=== PATIENT | male | born 1955 | race Caucasian/White ===

== ENCOUNTER 2018-11-17 11:14 | Inpatient (IN) ==
[2018-11-17] MEDS ORDERED: MAALOX PLUS LIQUID PO PRN (11:47)
[2018-11-17] MEDS ORDERED: DULCOLAX PR PRN (11:47)
[2018-11-17] MEDS ORDERED: ZOFRAN IV PRN (11:47)
[2018-11-17] MEDS ORDERED: DESYREL PO PRN (11:47)
[2018-11-17] MEDS ORDERED: ZOFRAN ODT PO PRN (11:47)
[2018-11-17] MEDS ORDERED: PHENOBARBITAL IV PRN (11:47)
[2018-11-17] MEDS ORDERED: LIBRIUM PO PRN (11:47)
[2018-11-17] MEDS ORDERED: D5W 1,000 ML IV PRN (11:47)
[2018-11-17] MEDS ORDERED: TUBERSOL ID ONE (11:47)
[2018-11-17] MEDS ORDERED: ATARAX PO PRN (11:47)
[2018-11-17] MEDS ORDERED: SENOKOT PO PRN (11:47)
[2018-11-17] MEDS ORDERED: NICODERM PATCH TD PRN (11:47)
[2018-11-17 12:23] LABS: URINE SOURCE VOIDED
[2018-11-17] MEDS: LIBRIUM PO SCH ×2 (12:24→18:03)
[2018-11-17 12:29] LABS: BILIRUBIN URINE NEGATIVE (NEGATIVE); BLOOD URINE NEGATIVE (NEGATIVE); KETONE URINE NEGATIVE (NEGATIVE); LEUKOCYTES URINE TRACE (NEGATIVE); NITRITE URINE NEGATIVE (NEGATIVE); PH URINE 6.5; PROTEIN URINE 1+(30 mg/dL) mg/dL (NEGATIVE); SP GRAVITY URINE 1.015; UROBILINOGEN URINE NORMAL
[2018-11-17 12:30] LABS: CLARITY CLEAR (CLEAR); COLOR YELLOW; URINE BACTERIA NEGATIVE /HFP; URINE CAST NONE SEEN /LPF; URINE CRYSTAL NONE SEEN /HPF; URINE EPITHELIAL CELLS <10 /HPF (<10); URINE RBC <10 /HPF (<10); URINE WBC <10 /HPF (<10); URINE YEAST NONE SEEN /HPF
[2018-11-17 12:35] LABS: UR AMPHETAMINES QUAL NONE DETECTED (NONE DETECT); UR BARBITUATES QUAL NONE DETECTED (NONE DETECT); UR BENZODIAZEPIN QUAL NONE DETECTED (NONE DETECT); UR CANNABINOIDS QUAL NONE DETECTED (NONE DETECT); UR COCAINE QUAL NONE DETECTED (NONE DETECT); UR METHADONE QUAL NONE DETECTED (NONE DETECT); UR METHAMPHETAMINE QUAL NONE DETECTED (NONE DETECT); UR OPIATES QUAL PRESUMPTIVE POSITIVE (NONE DETECT); UR OXYCODONE QUAL PRESUMPTIVE POSITIVE (NONE DETECT); UR PCP QUAL NONE DETECTED (NONE DETECT); UR PROPOXYPHENE QUAL NONE DETECTED (NONE DETECT); UR TCA QUAL NONE DETECTED (NONE DETECT)
[2018-11-17 12:47] LABS: HEMATOCRIT 41.9 % (42.0-52.0); HEMOGLOBIN 14.8 g/dL (14.0-18.0); MCH 30.4 PG (27-31); MCHC 35.3 g/dL (33-37); MPV 10.3 FL (7.4-10.4); RBC 4.87 XMIL (4.7-6.1); RDW 12.2 % (11.5-14.5); WBC 9.73 X1000 (4.8-10.8)
[2018-11-17 13:00] LABS: AMYLASE 50 U/L (20-200); LIPASE 30 U/L (13-60)
[2018-11-17 13:01] LABS: INR 1.04; PROTIME 14.1 Seconds (11.0-16.0)
[2018-11-17 13:04] LABS: AGAP 11; ALBUMIN 4.7 g/dL (3.5-5.0); ALKALINE PHOSPHATASE 117 U/L (32-122); BUN 6 mg/dL (8-22); CALCIUM 10.1 mg/dL (8.8-10.2); CHLORIDE 99 mmol/L (98-107); COSMO 277; CREATININE 0.9 mg/dL (0.7-1.2); ESTIMATED GFR > 60; GLUCOSE 140 mg/dL (70-104); GOT 43 U/L (10-34); GPT 55 U/L (10-44); POTASSIUM 3.8 mmol/L (3.5-5.1); SODIUM 139 mmol/L (136-145); TCO2 29 mmol/L (25-35); TOTAL PROTEIN 7.8 g/dL (6.3-8.3)
[2018-11-17] MEDS: BENTYL PO PRN (15:36)
[2018-11-17] MEDS: ROBAXIN PO PRN (15:36)
[2018-11-17] MEDS: IMODIUM PO PRN ×2 (16:43→18:02)
[2018-11-18] MEDS: ROBAXIN PO PRN ×3 (00:14→16:41)
[2018-11-18] MEDS: LIBRIUM PO SCH ×4 (00:14→20:02)
[2018-11-18] MEDS: TORADOL IV PRN (05:31)
[2018-11-18] MEDS: PROTONIX PO SCH (06:20)
[2018-11-18] MEDS: THERA M PLUS PO SCH (09:58)
[2018-11-18] MEDS: FOLIC ACID PO SCH (09:58)
[2018-11-18] MEDS: VITAMIN B-1 PO SCH (09:58)
[2018-11-18] MEDS: IMODIUM PO PRN (13:01)
--- NOTE | 2018-11-18 19:39 | PROGRESS NOTE ---
DATE: 11/18/2018 SUBJECTIVE: Patient notes that he is feeling okay, still having muscle aches, but overall is improved. PHYSICAL EXAMINATION: Vital Signs: Reviewed. General: He is awake, alert. He is in no distress. HEENT: Normocephalic. Neck: Supple. Cardiovascular: Regular rate. Chest: Clear. Abdomen: Soft. ASSESSMENT: 1. Nausea, vomiting. 2. Abdominal pain. 3. Myalgias. 4. Paresthesias. 5. Paroxysmal sweating. 6. Opiate abuse withdrawal and stabilization. PLAN: We will continue patient in the hospital. Continue to follow. Further orders as needed. Continue to wean Librium. Continue counseling. cc: Salinas Prince MD
[2018-11-18] MEDS: SINEMET 25/100 PO PRN (20:02)
[2018-11-18] MEDS: SEROQUEL PO PRN (20:02)
--- NOTE | 2018-11-18 21:15 | HISTORY AND PHYSICAL ---
CHIEF COMPLAINT: Nausea and vomiting. HISTORY OF PRESENT ILLNESS: The patient is a 62-year-old male who presented to [facility] [place] [facility] secondary to nausea, vomiting, abdominal pain, myalgias, paresthesias, and paroxysmal sweating. The patient notes that he has been using and abusing opiates. He wants to get his life back. Notes that he is tired of drugs controlling his life. SOCIAL HISTORY: Patient is . He is unemployed. Lives at home in [place]. PAST MEDICAL HISTORY: 1. Hypertension. 2. Chronic back pain, with 3 surgeries, two of them in 2003, the last one in 2010. MEDICATIONS: Lisinopril 20. ALLERGIES: No known drug allergies. REVIEW OF SYSTEMS: CINA score is elevated at 20 secondary to abdominal pain, cramping, nausea, vomiting, diarrhea, muscle aches, frequent restlessness, anxious, sniffing, watery eyes, runny nose, frequent changes in temperature, skin crawling. Denies any headaches, blurred vision, change in vision. Denies any focalized numbness, tingling, weakness in his extremities. Denies dysuria, frequency, urgency, constipation, melena, hematochezia. Denies any weight loss or weight gain. Denies chest pain, palpitations, shortness of breath, headaches, blurred vision, or focalized weakness. FAMILY HISTORY: Noncontributory. SUBSTANCE ABUSE HISTORY: The patient was in [facility] for 7 days in 2008, but only stayed sober for 1 month. Started alcohol at 15 and marijuana at 23; has not used either in years. Started opiates at 46. Currently, is taking greater than 10 [place] 10 daily. Started smoking at 17; currently smokes 3 packs a day. PHYSICAL EXAMINATION: VITAL SIGNS: Reviewed, stable. GENERAL: Patient is awake, alert. He is in no distress, although he is fidgety, anxious, frequently moving about, unable to sit still. HEENT: Normocephalic. NECK: Supple. CARDIOVASCULAR: Regular rate. CHEST: Clear. ABDOMEN: Soft. EXTREMITIES: Moves all extremities. NEUROLOGIC: No focal neurological changes. SKIN: Warm, dry. No rashes. ASSESSMENT: 1. Nausea vomiting. 2. Abdominal pain. 3. Myalgias. 4. Paresthesias. 5. Paroxysmal sweating. 6. Opiate abuse withdrawal and stabilization. 7. Hypertension. 8. Chronic tobacco abuse. PLAN: We will admit patient to the hospital. Continue to follow. Further orders as needed. Discussed with patient the importance of stopping smoking, the importance of stopping use and abuse. cc: Salinas Prince MD
[2018-11-19] MEDS: TORADOL IV PRN ×3 (02:04→19:17)
[2018-11-19] MEDS: LIBRIUM PO SCH ×3 (04:12→21:04)
[2018-11-19] MEDS: PROTONIX PO SCH (06:34)
[2018-11-19] MEDS: THERA M PLUS PO SCH (08:09)
[2018-11-19] MEDS: VITAMIN B-1 PO SCH (08:09)
[2018-11-19] MEDS: ROBAXIN PO PRN ×2 (08:09→15:13)
[2018-11-19] MEDS: FOLIC ACID PO SCH (08:09)
[2018-11-19] MEDS: SINEMET 25/100 PO PRN (21:18)
[2018-11-19] MEDS: SEROQUEL PO PRN (22:18)
[2018-11-19] MEDS: IMODIUM PO PRN (23:03)
[2018-11-20] MEDS: LIBRIUM PO SCH ×3 (03:44→19:40)
[2018-11-20] MEDS: TORADOL IV PRN ×3 (06:29→22:03)
[2018-11-20] MEDS: PROTONIX PO SCH (06:29)
[2018-11-20] MEDS ORDERED: CATAPRES PO ONE (08:43)
--- NOTE | 2018-11-20 09:03 | PROGRESS NOTE ---
DATE: 11/19/2018 SUBJECTIVE: Patient notes that he still feels bad, but actually better than he anticipated. Still having lots of muscle aches. Denies any tremors. Denies fevers or chills. OBJECTIVE: Vital Signs: On physical examination, vital signs reviewed. General: He is awake, alert. He is in no distress. HEENT: Normocephalic. Neck: Supple. Cardiovascular: Regular rate. Chest: Clear. Abdomen: Soft. Extremities: Moves all extremities. Neurologic: No change. ASSESSMENT: 1. Nausea and vomiting. 2. Abdominal pain. 3. Myalgias. 4. Paresthesias. 5. Paroxysmal sweating. 6. Opiate abuse withdrawal and stabilization. PLAN: Continue Librium taper and counseling. Further orders as needed. cc: Salinas Prince MD
[2018-11-20] MEDS: FOLIC ACID PO SCH (09:36)
[2018-11-20] MEDS: SINEMET 25/100 PO PRN (09:36)
[2018-11-20] MEDS: ROBAXIN PO PRN ×2 (09:36→19:40)
[2018-11-20] MEDS: THERA M PLUS PO SCH (09:37)
[2018-11-20] MEDS: VITAMIN B-1 PO SCH (09:37)
[2018-11-20] MEDS: TYLENOL PO PRN (09:37)
--- NOTE | 2018-11-20 10:30 | PROGRESS NOTE ---
DATE: 11/20/2018 SUBJECTIVE: The patient notes overall he is feeling better although he is still having pretty significant restless leg issues at times. Denies any fevers, chills, cough, congestion. Denies any dysuria, frequency, or urgency. PHYSICAL EXAMINATION: Vital Signs: Reviewed. He is awake, alert. He is in no distress. HEENT: Normocephalic. Neck: Supple. Cardiovascular: Regular rate. No murmurs. Chest clear, nonlabored. Abdomen: Soft, nondistended. Extremities: Moves all extremities. Neurologic: No changes. ASSESSMENT: 1. Restless legs syndrome. 2. Nausea and vomiting. 3. Abdominal pain. 4. Myalgias. 5. Paresthesias. 6. Opiate abuse, withdrawal and stabilization. PLAN: Continue patient in the hospital. Continue Librium taper. Further orders as needed. Continue counseling. cc: Salinas Prince MD
[2018-11-20] MEDS: IMODIUM PO PRN (13:50)
[2018-11-20] MEDS: SEROQUEL PO PRN (22:03)
[2018-11-21] MEDS: ROBAXIN PO PRN ×2 (03:38→12:13)
[2018-11-21] MEDS: LIBRIUM PO SCH ×3 (03:38→21:29)
[2018-11-21] MEDS: PROTONIX PO SCH (06:25)
[2018-11-21] MEDS: TYLENOL PO PRN (08:10)
[2018-11-21] MEDS: SINEMET 25/100 PO PRN (08:10)
[2018-11-21] MEDS: THERA M PLUS PO SCH (08:10)
[2018-11-21] MEDS: FOLIC ACID PO SCH (08:10)
[2018-11-21] MEDS: VITAMIN B-1 PO SCH (08:10)
[2018-11-21] MEDS: IMODIUM PO PRN ×2 (12:12→16:05)
[2018-11-21] MEDS: TORADOL IV PRN ×2 (12:13→21:42)
[2018-11-21] MEDS ORDERED: REVIA PO ONE (13:00)
[2018-11-21] MEDS ORDERED: CATAPRES PO ONE (13:22)
[2018-11-21] MEDS: REQUIP PO SCH ×2 (14:01→21:30)
--- NOTE | 2018-11-21 14:13 | PROGRESS NOTE ---
DATE: 11/21/2018 SUBJECTIVE: Patient is starting to feel better. Still having significant issues with restless leg. Other than that, notes that his symptoms have improved. PHYSICAL EXAMINATION: Vital Signs: Reviewed. General: He is awake and alert. He is in no distress. HEENT: Normocephalic. Neck: Supple. Cardiovascular: Regular rate. Chest: Clear. Abdomen: Soft. Extremities: Moves all extremities. ASSESSMENT: 1. Restless leg syndrome. Change to Requip to see if this will help. 2. Opiate abuse withdrawal and stabilization. We will add 1 dose of clonidine as well. PLAN: We will add Requip and 1 dose of clonidine. We will start naltrexone to see how he tolerates. If he tolerates this, he will be given a dose of Vivitrol in the a.m. and discharged home hopefully. cc: Salinas Prince MD
[2018-11-21] MEDS: BENTYL PO PRN (16:05)
[2018-11-21] MEDS ORDERED: LOMOTIL PO PRN (21:05)
[2018-11-21] MEDS: SEROQUEL PO PRN (21:30)
[2018-11-22] MEDS: ROBAXIN PO PRN ×2 (00:31→18:28)
[2018-11-22] MEDS: LIBRIUM PO SCH ×3 (05:26→21:04)
[2018-11-22] MEDS: REQUIP PO SCH ×3 (05:26→21:04)
[2018-11-22] MEDS: PROTONIX PO SCH ×2 (05:27→07:38)
[2018-11-22] MEDS: TORADOL IV PRN ×2 (05:27→21:04)
[2018-11-22] MEDS: FOLIC ACID PO SCH (10:33)
[2018-11-22] MEDS: VITAMIN B-1 PO SCH (10:33)
[2018-11-22] MEDS: THERA M PLUS PO SCH (10:33)
--- NOTE | 2018-11-22 19:42 | PROGRESS NOTE ---
DATE: 11/22/2018 SUBJECTIVE: Patient notes feeling a lot better although still very sleepy and tired, denies any fevers or chills. PHYSICAL: Vital Signs: Reviewed. He is awake, alert, he is in no distress. HEENT: Normocephalic. Neck: Supple. CV: Regular rate. Chest: Clear. Abdomen: Soft. ASSESSMENT: 1. Diarrhea. Diarrhea worsened after given Vivitrol last night. We are not going to give him a dose today, will continue to follow, will attempt to wean his Librium as that most likely keeping him drowsy. 2. Drowsiness. 3. Opiate abuse withdrawal and stabilization. PLAN: Overall patient has improved, we will continue to follow, hopefully can be discharged home over the next day or 2. cc: Salinas Prince MD
[2018-11-22] MEDS: SEROQUEL PO PRN (21:04)
[2018-11-23] MEDS: TORADOL IV PRN (03:13)
[2018-11-23] MEDS: REQUIP PO SCH ×2 (06:46→14:02)
[2018-11-23] MEDS: PROTONIX PO SCH (06:46)
[2018-11-23 07:52] VITALS: BP 155/79
[2018-11-23] MEDS: FOLIC ACID PO SCH (08:20)
[2018-11-23] MEDS: THERA M PLUS PO SCH (08:20)
[2018-11-23] MEDS: VITAMIN B-1 PO SCH (08:20)
[2018-11-23] MEDS ORDERED: LIBRIUM PO SCH (09:00)
--- NOTE | 2018-11-24 14:53 | DISCHARGE SUMMARY ---
ADMISSION DATE: 11/17/2018 DISCHARGE DATE: 11/23/2018 DISCHARGE DIAGNOSES: 1. Nausea, vomiting. 2. Abdominal pain. 3. Myalgias. 4. Paresthesias. 5. Opiate abuse withdrawal and stabilization. 6. Tremors. 7. Paresthesias. 8. Paroxysmal sweating. CONSULTATIONS: None. PROCEDURES: None. BRIEF HOSPITAL COURSE: The patient is a 62-year-old male who presented to the hospital, treated in the usual fashion, placed on high-dose Librium taper. He continued to improve. On discharge, he is awake, alert. He is in no distress. Overall, he has improved. DISPOSITION: Discussed with the patient that he needs to avoid all persons, places, and situations in which he has been using and abusing in the past. He needs outpatient life counseling as well as drug counseling. We will discharge him home. TIME SPENT: Greater than 30 minutes was spent in total care. He was given 1 dose of naltrexone, and he tolerated it well. He will be discharged home on naltrexone. He will follow up outpatient with treatment facility of choice. cc: Salinas Prince MD
== END 2018-11-23 14:28 | disposition home or self-care (01) | DRG 897 ==
LOC: P.MEDSURG 11:14
PROVIDERS: ADMIT Family Medicine; ATTEND Family Medicine